=== PATIENT | female | born 1980 | race Caucasian/White ===

== ENCOUNTER 2022-04-24 17:06 | Day surgery (SDC) | payer SELFPAY ==
[2022-04-21 17:30] VITALS: BMI 25.2
[2022-04-24] MEDS: LACTATED RINGERS SOLUTION 1,000 ML IV SCH (16:13)
[~2022-04-24 17:06] MED LIST: ACETAMINOPHEN 325 MG TABLET (FP) PO PRN; ACETAMINOPHEN INJECTION 100 ML IVPB ONE; BACITRACIN 15 GM TUBE TOPICAL OINTMENT ONE; BUPIVACAINE HCL/PF 0.25% (2.5MG/ML) 10 ML VIAL ONE; BUPIVACAINE HCL/PF 2.5 MG/ML - 30 ML VIAL IJ ONE; CLINDAMYCIN 300 MG PREMIX IVPB 300 MG/50 ML BAG IVPB SCH; DEXAMETHASONE SOD PHOSPHATE 4 MG/1 ML VIAL IVPUSH ONE; DEXMEDETOMIDINE HCL 200 MCG/2 ML IVPB ONE; EPINEPHrine/PF 1 MG/1 ML (1:1,000) AMPULE ONE; FENTANYL CITRATE/PF 50 MCG/ML VIAL ONE; GUM MASTIC/STORAX/MSAL/ALCOHOL 1 DRP DROPSBTL MC ONE; KETAMINE HCL 200 MG/20 ML VIAL ONE; LIDOCAINE HCL 1%, 10 MG/ML (20ML VIAL) ONE; MIDAZOLAM HCL 2 MG/2 ML SINGLE DOSE VIAL ONE; ONDANSETRON *ODT* 4 MG TABLET SL PRN; ONDANSETRON 4 MG/2 ML VIAL IVPUSH PRN; ONDANSETRON 4 MG/2 ML VIAL ONE; PHENYLEPHRINE HCL 10 MG/1 ML SINGLE DOSE VIAL ONE; PROMETHAZINE HCL 25 MG/1 ML VIAL IVPUSH PRN; PROPOFOL 20 ML ONE; ZOLPIDEM TARTRATE 5 MG TABLET PO PRN; ePHEDrine SULFATE 50 MG/1 ML AMPULE ONE; oxyCODONE HCL 5 MG TABLET PO PRN
[2022-04-24] MEDS: CLINDAMYCIN 300 MG PREMIX IVPB 300 MG/50 ML BAG IVPB SCH (17:10)
[2022-04-24] MEDS: HYDROmorphone HCl 2 MG/ML VIAL IVPB PRN ×2 (17:50→22:36)
[2022-04-24] MEDS: DOCUSATE SODIUM 100 MG CAPSULE (FP) PO PRN (21:22)
[2022-04-24] MEDS: ONDANSETRON 4 MG/2 ML VIAL IVPUSH PRN (21:42)
[2022-04-24] MEDS: diazePAM 5 MG TABLET PO PRN (23:49)
[2022-04-25] MEDS: CLINDAMYCIN 300 MG PREMIX IVPB 300 MG/50 ML BAG IVPB SCH ×3 (01:26→16:48)
[2022-04-25] MEDS: HYDROmorphone HCl 2 MG/ML VIAL IVPB PRN (02:45)
[2022-04-25] MEDS: ONDANSETRON 4 MG/2 ML VIAL IVPUSH PRN (03:12)
[2022-04-25] MEDS: ENOXAPARIN NA (PORCINE) 40 MG/0.4 ML DISP.SYRIN SQ SCH ×2 (06:46→09:30)
[2022-04-25] MEDS: ACETAMINOPHEN 325 MG TABLET (FP) PO PRN ×2 (09:51→16:48)
[2022-04-25] MEDS: diazePAM 5 MG TABLET PO PRN ×2 (09:51→21:56)
[2022-04-25] MEDS: oxyCODONE HCL 5 MG TABLET PO PRN ×2 (12:55→18:55)
[2022-04-25] MEDS: LACTATED RINGERS SOLUTION 1,000 ML IV SCH (17:43)
[2022-04-25] MEDS: DOCUSATE SODIUM 100 MG CAPSULE (FP) PO PRN (17:43)
[2022-04-26] MEDS: ACETAMINOPHEN 325 MG TABLET (FP) PO PRN (01:49)
[2022-04-26] MEDS: oxyCODONE HCL 5 MG TABLET PO PRN ×3 (01:49→14:04)
[2022-04-26] MEDS: CLINDAMYCIN 300 MG PREMIX IVPB 300 MG/50 ML BAG IVPB SCH ×2 (01:50→09:43)
[2022-04-26] MEDS: ENOXAPARIN NA (PORCINE) 40 MG/0.4 ML DISP.SYRIN SQ SCH (09:43)
[2022-04-26 10:13] VITALS: RESP 17; TEMP 98.5
[2022-04-26] MEDS: DOCUSATE SODIUM 100 MG CAPSULE (FP) PO PRN (14:04)
[2022-04-26 15:36] VITALS: BP 125/72; PULSE 80
== END 2022-04-26 14:25 | disposition home or self-care (01) ==
LOC: FM/S 17:06 → FASUSAT 17:06
PROVIDERS: ATTEND Surgery
CPT/HCPCS: 71045-TC-FY; 81025; 94760

== ENCOUNTER 2023-11-11 11:47 | Day surgery (SDC) | payer SELFPAY ==
[2023-11-05 09:06] VITALS: BMI 24.1
[~2023-11-11 11:47] MED LIST changes: -ACETAMINOPHEN 325 MG TABLET (FP) PO PRN; -ACETAMINOPHEN INJECTION 100 ML IVPB ONE; -BACITRACIN 15 GM TUBE TOPICAL OINTMENT ONE; -BUPIVACAINE HCL/PF 0.25% (2.5MG/ML) 10 ML VIAL ONE; -BUPIVACAINE HCL/PF 2.5 MG/ML - 30 ML VIAL IJ ONE; -CLINDAMYCIN 300 MG PREMIX IVPB 300 MG/50 ML BAG IVPB SCH; -DEXAMETHASONE SOD PHOSPHATE 4 MG/1 ML VIAL IVPUSH ONE; -DEXMEDETOMIDINE HCL 200 MCG/2 ML IVPB ONE; -EPINEPHrine/PF 1 MG/1 ML (1:1,000) AMPULE ONE; -FENTANYL CITRATE/PF 50 MCG/ML VIAL ONE; -GUM MASTIC/STORAX/MSAL/ALCOHOL 1 DRP DROPSBTL MC ONE; -KETAMINE HCL 200 MG/20 ML VIAL ONE; +LACTATED RINGERS SOLUTION 1,000 ML IV SCH; -LIDOCAINE HCL 1%, 10 MG/ML (20ML VIAL) ONE; -MIDAZOLAM HCL 2 MG/2 ML SINGLE DOSE VIAL ONE; -ONDANSETRON *ODT* 4 MG TABLET SL PRN; -ONDANSETRON 4 MG/2 ML VIAL ONE; -PHENYLEPHRINE HCL 10 MG/1 ML SINGLE DOSE VIAL ONE; -PROMETHAZINE HCL 25 MG/1 ML VIAL IVPUSH PRN; -PROPOFOL 20 ML ONE; -ZOLPIDEM TARTRATE 5 MG TABLET PO PRN; -ePHEDrine SULFATE 50 MG/1 ML AMPULE ONE; -oxyCODONE HCL 5 MG TABLET PO PRN
[2023-11-11] MEDS ORDERED: DEXAMETHASONE SOD PHOSPHATE 4 MG/1 ML VIAL ONE (12:34)
[2023-11-11] MEDS ORDERED: PROPOFOL 20 ML ONE (12:34)
[2023-11-11] MEDS ORDERED: CLINDAMYCIN 600MG PREMIX IVPB 1,200 MG/100 ML BAG IVPB ONE (12:34)
[2023-11-11] MEDS ORDERED: LIDOCAINE HCL 2% 100 MG/5 ML DISP.SYRIN ONE (12:34)
[2023-11-11] MEDS ORDERED: ROCURONIUM BROMIDE 50 MG/5 ML SYRINGE ONE (12:35)
[2023-11-11] MEDS ORDERED: MIDAZOLAM HCL 2 MG/2 ML SINGLE DOSE VIAL ONE (12:35)
[2023-11-11] MEDS ORDERED: EPINEPHrine/PF 1 MG/1 ML (1:1,000) AMPULE ONE (13:06)
[2023-11-11] MEDS ORDERED: BACITRACIN ZINC 15 GM TUBE TOPICAL OINTMENT ONE (13:07)
[2023-11-11] MEDS ORDERED: LIDOCAINE HCL 1%, 10 MG/ML (20ML VIAL) ONE (13:07)
[2023-11-11] MEDS ORDERED: BUPIVACAINE HCL/PF 0.5% (5MG/ML) 10 ML VIAL ONE (13:08)
[2023-11-11] MEDS ORDERED: GUM MASTIC/STORAX/MSAL/ALCOHOL 1 DRP DROPSBTL MC ONE (13:09)
[2023-11-11] MEDS ORDERED: BUPIVACAINE HCL/PF 2.5 MG/ML - 30 ML VIAL IJ ONE (13:09)
[2023-11-11] MEDS ORDERED: BUPIVACAINE HCL/PF 0.25% (2.5MG/ML) 10 ML VIAL ONE (15:10)
[2023-11-11] MEDS: BUPIVACAINE HCL/PF 0.25% (2.5MG/ML) 10 ML VIAL IJ ONE (15:35)
[2023-11-11] MEDS ORDERED: KETOROLAC TROMETHAMINE 30 MG/1 ML VIAL ONE (16:04)
[2023-11-11] MEDS ORDERED: ONDANSETRON 4 MG/2 ML VIAL ONE ×2 (16:04→16:53)
[2023-11-11] MEDS ORDERED: oxyCODONE HCL 5 MG TABLET PO PRN (16:49)
[2023-11-11] MEDS ORDERED: FENTANYL CITRATE/PF 50 MCG/ML VIAL ONE (16:51)
[2023-11-11] MEDS: ONDANSETRON 4 MG/2 ML VIAL IVPUSH PRN (16:56)
[2023-11-11] MEDS ORDERED: PROMETHAZINE HCL 25 MG/1 ML VIAL ONE (17:07)
[2023-11-11] MEDS: PROMETHAZINE HCL 25 MG/1 ML VIAL IVPB PRN (17:11)
[2023-11-11 18:18] VITALS: RESP 17; TEMP 97
[2023-11-11] MEDS ORDERED: oxyCODONE HCL 5 MG TABLET ONE (18:18)
[2023-11-11] MEDS: oxyCODONE HCL 5 MG TABLET PO PRN (18:20)
[2023-11-11 18:58] VITALS: BP 104/68; PULSE 84
== END 2023-11-11 18:59 | disposition home or self-care (01) ==
LOC: FASU 11:47
PROVIDERS: ATTEND Surgery
CPT/HCPCS: 81025; 88304-TC; 94760